=== PATIENT | male | born 1950 | race African-American/Black ===

== ENCOUNTER 2021-03-13 19:54 | Inpatient (IN) ==
[2021-03-13 20:57] LABS: Basophils # (auto) 0.01 K/uL (0-0.2); Basophils % (auto) 0.1 %; Eosinophils # (auto) 0.03 K/uL (0-0.5); Eosinophils % (auto) 0.4 %; Hematocrit (blood only) 42.2 % (42-52); Hemoglobin 14.4 g/dL (14.0-18.0); Immature Granulocytes # (auto) 0.02 K/uL (0.00-0.02); Immature Granulocytes % (auto) 0.3 %; Lymphocytes % (auto) 21.6 %; Mean Corpuscular Hemoglobin 32.4 pg (25-34); Mean Corpuscular Hgb Conc 34.1 g/dL (32-36); Mean Corpuscular Volume 94.8 fL (80-100); Mean Platelet Volume 10.7 fL (7.4-10.4); Monocytes # (auto) 0.48 K/uL (0.11-0.59); Monocytes % (auto) 6.9 %; Neutrophils # (auto) 4.91 K/uL (1.4-6.5); Neutrophils % (auto) 70.7 %; Platelet Count 269 K/uL (130-400); RDW Coefficient of Variation 11.7 % (11.5-14.5); RDW Standard Deviation 40.5 fL (36.4-46.3); Red Blood Count 4.45 M/uL (4.7-6.1); White Blood Count 6.95 K/uL (4.8-10.8)
[2021-03-13 21:08] LABS: INR 0.9 (0.9-1.1); Prothrombin Time 9.6 Seconds (9.0-12.0)
[2021-03-13 21:14] LABS: Albumin Level 3.4 gm/dl (3.4-5.0); Aspartate Aminotransferase 18 U/L (15-37); Blood Urea Nitrogen 13 mg/dl (7-18); Calcium 8.4 mg/dl (8.5-10.1); Carbon Dioxide 26 mmol/L (21-32); Chloride 98 mmol/L (98-107); Creatinine Clr Calc Pharmacy 60.4 ml/min; Est GFR (African American) 80.7 ml/min; Est GFR (Non-African American) 69.7 ml/min; Glucose 245 mg/dl (70-99); Potassium 3.9 mmol/L (3.5-5.1); Sodium 131 mmol/L (136-145)
[2021-03-13 21:25] LABS: Alanine Aminotransferase 26 U/L (12-78); Albumin Globulin Ratio 0.8 (0.9-2); Alkaline Phosphatase 99 U/L (45-117); Globulin 4.4 gm/dl (2.5-4.0); Total Protein 7.8 gm/dl (6.4-8.2); Troponin I < 0.015 ng/ml (0-0.045)
--- NOTE | 2021-03-13 21:34 | XRay Report ---
SINGLE VIEW CHEST CLINICAL HISTORY: Generalized weakness. FINDINGS: An AP, portable, upright chest radiograph is compared to chest x-ray and chest CT dated . The cardiomediastinal silhouette is unremarkable noting atherosclerotic calcification of the thoracic aorta. Emphysematous change and chronic interstitial thickening is similar to previous. No airspace consolidation, large pleural effusion, pneumothorax is seen. There is mild bibasilar atelect asis. The skeletal structures are osteopenic. The bony thorax is grossly intact. IMPRESSION: No acute cardiopulmonary abnormality. ACT 112: Negative or not required by law. Electronically signed by: Fernando Morgan M.D. 03/13/2021 9:33 PM
[2021-03-13 21:54] LABS: Lyme Ab IgG w/WB Rflx Negative (Negative); Lyme Ab IgM w/WB Rflx Negative (Negative)
--- NOTE | 2021-03-13 22:05 | CT Scan Report ---
CT SCAN OF THE ABDOMEN AND PELVIS WITHOUT IV CONTRAST CLINICAL HISTORY: Generalized abdominal pain. COMPARISON STUDY: No priors. TECHNIQUE: CT scan of the abdomen and pelvis is performed from the lung bases to the proximal femora. Images are reviewed in the axial, sagittal, and coronal planes. IV contrast was not administered for this examination. Note that the examination is suboptimal without oral and IV contrast. A dose lower ing technique was utilized adhering to the principles of ALARA. CT DOSE: 375.81 mGy.cm FINDINGS: Lung bases: The heart is normal in size and without pericardial effusion. The coronary arteries are d ensely calcified. Emphysematous change is noted at the lung bases. There is no airspace consolidation or pleural effusion. There is a small hiatal hernia. Liver: The unenhanced liver is normal in size, contour, and attenuation. There is no intrahepatic adriane iary ductal dilatation. Gallbladder: Unremarkable. Spleen: Normal in size and attenuation. Pancreas: There is mild infiltration and fluid identified around the distal pancreatic body and tail. No organized peripancreatic fluid collection is identified on this unenhanced examination. Adrenal glands: Unremarkable. Kidneys: The unenhanced kidneys demonstrate mild cortical atrophy and are without hydronephrosis. The re are no renal calculi identified. There is no evidence of contour deforming renal mass lesion. Abdominal vasculature: There is advanced atherosclerotic calcification mild ectasia of the abdominal aorta. Bowel: There is no bowel obstruction. The appendix is well-visualized and normal. Peritoneum: There is no intraperitoneal free air or abdominal ascites. There is a fat-containing umbi lical hernia. Lymphadenopathy: None. Pelvic viscera: The prostate gland is mildly enlarged and heterogeneous noting median lobe hypertroph y. The bladder is normal as visualized. There is evidence of bilateral inguinal herniorrhaphy. Skeletal structures: There is mild to moderate lumbosacral spondylosis. No lytic or blastic lesions a re seen. IMPRESSION: Findings suggest mild acute pancreatitis. Correlation with clinical findings and serum am ylase/lipase levels will be required. ACT 112: Negative or not required by law. Electronically signed by: Fernando Morgan M.D. 03/13/2021 10:03 PM
[2021-03-13] MEDS ORDERED: SODIUM CHLORIDE 0.9% 1000ML 1,000 ML IV ONE (22:19)
[2021-03-13 22:34] LABS: Amylase 124 U/L (25-115); Lipase 438 U/L (73-393)
[2021-03-13] MEDS ORDERED: hydrALAZINE HCL 20 MG/ML VIAL IV STA (22:48)
[2021-03-14] MEDS ORDERED: hydrALAZINE HCL 20 MG/ML VIAL IV PRN (01:04)
[2021-03-14] MEDS ORDERED: DICLOFENAC SOD 1% GEL 100 GM TUBE EXT PRN (01:04)
[2021-03-14] MEDS ORDERED: ACETAMINOPHEN 325 MG TAB PO PRN (01:04)
[2021-03-14] MEDS ORDERED: NITROGLYCERIN SL 0.4 MG/TAB TAB SL PRN (01:04)
[2021-03-14] MEDS ORDERED: ONDANSETRON INJ 2 MG/ML 2 ML VIAL IV PRN (01:04)
--- NOTE | 2021-03-14 02:12 | History and Physical Report ---
DATE OF ADMISSION: 03/13/2021. CHIEF COMPLAINT: Nausea, poor appetite. HISTORY OF PRESENT ILLNESS: This is a 70-year-old male with past medical history significant for type 2 diabetes, hyperlipidemia, hypertension, GERD, BPH, moderate depression, tobacco disorder, mild cognitive impairment, lives alone, presents with ongoing nausea, dry heaves, poor appetite for the last 3 weeks. He says he has lost some weight, that is the reason he came to the ER and found to have mild pancreatitis and also having elevated blood pressure. Denies any abdominal pain. Says he is having loose diarrhea, but he is not eating much, so nothing is coming out much. Normal bladder movements. Denies any burning micturitions, no swelling in the legs. No chest pain. No shortness of breath. Has smoker's cough. No headache, no blurred visions, no earache, no runny nose, no sore throat. Currently, resting comfortably and hemodynamically stable. ALLERGIES: TREE POLLEN. PAST MEDICAL HISTORY: As mentioned above. PAST SURGICAL HISTORY: Colonoscopy, repair of inguinal hernia, repair of ruptured rotator cuff. MEDICATIONS: The patient is on aspirin 81 mg p.o. daily, citalopram 20 mg p.o. daily, diclofenac sodium 1 g topical p.r.n., Flonase 2 sprays intranasal daily, Levemir 36 units b.i.d., lamotrigine 150 mg p.o. daily, lisinopril and hydrochlorothiazide 20/12.5 mg p.o. daily, omeprazole 20 mg p.o. daily, Cialis 20 mg p.r.n., Flomax 0.4 mg p.o. daily. FAMILY HISTORY: Significant for aunt has diabetes; father has diabetes, hypertension; mother has hypertension. SOCIAL HISTORY: Single, smokes 1 pack a day for the last many years. No alcohol use. No drug use. Cocaine in the past. REVIEW OF SYSTEMS: As per HPI. Rest of review of systems is negative. PHYSICAL EXAMINATION: GENERAL: The patient is of moderate build, not in acute distress. VITAL SIGNS: Temperature 36.7, pulse 72, respiratory rate 22, blood pressure 219/123, oxygen 99% on room air. HEENT: Pupils equal, round and reactive to light. Oral mucosa moist. NECK: No JVD, no neck masses. HEART: S1 and S2 heard. Regular rate and rhythm. No murmur, no gallop. RESPIRATORY SYSTEM: Normal AP diameter. No accessory muscle use. No wheezing, no crackles. ABDOMEN: Soft, bowel sounds present, nontender, no distention. CENTRAL NERVOUS SYSTEM: Cranial nerves II-XII grossly intact, nonfocal. EXTREMITIES: No edema, no erythema. LABORATORY DATA: WBC 6.9, hemoglobin 14.4, hematocrit 42.2, platelets 269. PT 9.6, INR 0.9. Sodium 131, potassium 3.9, chloride 98, bicarbonate 26, BUN 13, creatinine 1.08, serum glucose 245, calcium 8.4, total bilirubin 1, AST of 18, ALT 26, alkaline phosphatase 99. Troponin I less than 0.015. Amylase 124, lipase 438. TSH 1.7. Lyme screen negative. Anaplasmosis screen negative. COVID-19 PCR negative. IMAGING DATA: CT of abdomen and pelvis is suggestive of mild acute pancreatitis. Chest x-ray, no acute cardiopulmonary findings. EKG: Sinus rhythm with first-degree AV block at a rate of 80. ASSESSMENT AND PLAN: This is a 70-year-old male, who presents with ongoing nausea, dry heaves, and weight loss. 1. Nausea and dry heaves: He says he has poor appetite. No abdominal pain, but CAT scan is showing mild acute pancreatitis. No history of alcoholism. Currently n.p.o. except for liquids. Starting on IV Ringer lactate 200 mL per hour, IV antiemetics. Consult GI in the a.m. for further recommendations. 2. Hypertensive urgency: Blood pressure is elevated. After hydralazine, it is improved. Will place on IV hydralazine p.r.n. Continue home lisinopril and hydrochlorothiazide. Monitor the blood pressure. 3. Depression: Continue citalopram. 4. Gastroesophageal reflux disease: Will place on IV Pepcid. 5. Diabetes: The patient has poor appetite. We will cut back on Levemir to [address] and [address] on insulin sliding scale. Follow the blood sugars. Follow HbA1c level. Adjust the insulin regimen. 6. Benign prostatic hypertrophy: On Flomax. 7. Tobacco abuse: Needs counseling. 8. Deep venous thrombosis prophylaxis: Lovenox. DISPOSITION: Closely monitor in the [facility]. Level 1 full code. Expect to discharge home and follow up with family doctor. Addendum: Patient having heart block on tele strips.Asymptomatic. Ekg shows mobitz type 1 heart block. Lyme screen done in er negative. Will avoid Av blocking meds.follow troponin, echo. Cardiology consult in am. NPO. Job ID: [id number] AMOS
[2021-03-14] MEDS: LACTATED RINGER'S 1,000 ML IV SCH ×4 (02:17→17:47)
[2021-03-14] MEDS ORDERED: INSULIN HUMAN REGULAR PER UNIT 4 UNITS in SYRINGE 3.96 ML IV STA (02:26)
--- NOTE | 2021-03-14 02:59 | Emergency Department Note ---
History of Present Illness General Chief complaint: Nausea Stated complaint: NAUSEA Time Seen by Provider: 03/13/21 20:30 Source: patient Mode of arrival: ambulatory Limitations: no limitations History of Present Illness Maximum Pain Intensity: 7 This patient is a 70-year-old male who says he has not felt well for the last 2 to 3 weeks since it got humid. He says he has been losing weight his appetites been decreased. He denies any shortness of breath or cough. He feels achy in his thighs and legs. He had some nausea without any vomiting. He said diarrhea however he only small amounts he said no blood or melena. He has some stomachaches occasionally describes as aching. No tick bites. No fever or chills. He did have the Covid vaccine. No dysuria or hematuria. No abdominal distention. No change in medications. No pleurisy. Has been compliant with all of his medications. Nothing seems to make his symptoms better or worse. Home Medications Medication Instructions Recorded Confirmed Type aspirin 81 mg tablet,delayed 81 mg PO DAILY 03/13/21 03/13/21 History release citalopram 20 mg tablet 20 mg PO DAILY 03/13/21 03/13/21 History diclofenac sodium 1 % topical gel 1 g TOPICAL UD PRN 03/13/21 03/13/21 History fluticasone propionate 50 2 spray INTRANASAL DAILY 03/13/21 03/13/21 History mcg/actuation nasal spray,suspension insulin detemir U-100 100 unit/mL 36 unit SUBCUT BID 03/13/21 03/13/21 History (3 mL) subcutaneous pen (Levemir FlexTouch U-100 Insulin) lamotrigine 150 mg tablet 150 mg PO DAILY 03/13/21 03/13/21 History lisinopril 20 1 tab PO DAILY 03/13/21 03/13/21 History mg-hydrochlorothiazide 12.5 mg tablet omeprazole 20 mg capsule,delayed 20 mg PO DAILY 03/13/21 03/13/21 History release tadalafil 20 mg tablet (Cialis) 20 mg PO DAILY PRN 03/13/21 03/13/21 History tamsulosin 0.4 mg capsule 0.4 mg PO DAILY 03/13/21 03/13/21 History Allergies Allergy/AdvReac Type Severity Reaction Status Date / Time TREES, POLLEN Allergy Intermediate ITCHY Uncoded 03/13/21 23:13 EYES, SNEEZE Past Med/Surg History Social History Smoking Status: Current every day smoker Cigarettes Per Day: 1 pack; Second Hand Exposure: No; Do You Dip or Chew Tobacco: No; Tobacco Cessation Education Requested by Patient: No Hx Alcohol Use: Yes Alcohol type: beer Hx Substance Use: No Preferred Language: Italian Communication Ability: Effective Release Of Information Clerk Required: No Beliefs That Will Affect Care: None Current Living Situation: Alone Other Information That Helps Us Care for You: No Feels Safe at Home: Yes Safety Concerns: Feels Safe At This Time Assistive Devices: Glasses Immunizations: Past medical historydiabetes he is on insulin. His blood sugars been running okay. Hypertension. Social historysmokes 1 pack/day. Does not drink alcohol or use drugs. Review of Systems A total of 10 systems reviewed and were otherwise negative Physical Exam Vital Signs Vital Signs - 24 hr 03/13/21 19:58 03/13/21 20:30 03/13/21 20:40 Temperature 36.7 C Temperature Source Skin Pulse Rate 108 H 77 Pulse Rate from SpO2 Sensor 84 Pulse Rhythm Regular Pulse Strength Normal Respiratory Rate 20 22 Respiratory Effort / Characteristics Non-Labored Respiratory Depth Normal Normal Respiratory Pattern Regular Blood Pressure 206/129 H 209/125 H Blood Pressure Mean 154 153 Blood Pressure Position Sitting Pulse Oximetry 97 97 Oxygen Delivery Method Room Air Room Air Sepsis Recent Fever Within 48 Hours No Sepsis New/Unexplained Change in Mental Status N/A Sepsis Action Taken by Nursing No Action Required 03/13/21 20:45 03/13/21 21:00 03/13/21 21:15 Temperature Temperature Source Pulse Rate 79 83 91 H Pulse Rate from SpO2 Sensor 77 82 89 Pulse Rhythm Pulse Strength Respiratory Rate 20 25 H 19 Respiratory Effort / Characteristics Respiratory Depth Respiratory Pattern Blood Pressure 208/121 H 204/130 H 212/124 H Blood Pressure Mean 150 154 153 Blood Pressure Position Pulse Oximetry 100 98 99 Oxygen Delivery Method Sepsis Recent Fever Within 48 Hours Sepsis New/Unexplained Change in Mental Status Sepsis Action Taken by Nursing 03/13/21 21:31 03/13/21 21:53 03/13/21 22:00 Temperature Temperature Source Pulse Rate 67 77 Pulse Rate from SpO2 Sensor 70 88 83 Pulse Rhythm Pulse Strength Respiratory Rate 25 H 22 24 Respiratory Effort / Characteristics Respiratory Depth Respiratory Pattern Blood Pressure 230/130 H 212/132 H Blood Pressure Mean 163 158 Blood Pressure Position Pulse Oximetry 98 98 98 Oxygen Delivery Method Sepsis Recent Fever Within 48 Hours Sepsis New/Unexplained Change in Mental Status Sepsis Action Taken by Nursing 03/13/21 22:15 03/13/21 22:31 03/13/21 22:46 Temperature Temperature Source Pulse Rate 82 85 99 H Pulse Rate from SpO2 Sensor 82 85 Pulse Rhythm Pulse Strength Respiratory Rate 25 H 27 H 23 Respiratory Effort / Characteristics Respiratory Depth Respiratory Pattern Blood Pressure 220/124 H 230/171 H Blood Pressure Mean 156 190 Blood Pressure Position Pulse Oximetry 98 99 Oxygen Delivery Method Sepsis Recent Fever Within 48 Hours Sepsis New/Unexplained Change in Mental Status Sepsis Action Taken by Nursing 03/13/21 23:00 03/13/21 23:17 Temperature Temperature Source Pulse Rate 72 82 Pulse Rate from SpO2 Sensor 87 Pulse Rhythm Pulse Strength Respiratory Rate 22 18 Respiratory Effort / Characteristics Respiratory Depth Respiratory Pattern Blood Pressure 219/123 H 138/78 Blood Pressure Mean 155 98 Blood Pressure Position Pulse Oximetry 99 Oxygen Delivery Method Sepsis Recent Fever Within 48 Hours Sepsis New/Unexplained Change in Mental Status Sepsis Action Taken by Nursing General: Well developed well nourished middle-age male who in no acute distress, breathing comfortably on room air. Normal speech HEENT: Normal cephalic atraumatic. Pupils are equal round and reactive to light. Extraocular movements are intact. Oropharynx is pink with moist mucous membranes. No swelling of the mouth lips or tongue. Neck: Supple with a midline trachea. No meningeal signs or stiffness, no JVD or bruits. No Stridor. Chest: Clear to auscultation bilaterally. No wheezes or rhonchi. No increased work of breathing. Heart: Regular rate and rhythm without murmurs or gallops. Abdomen: Soft nontender, nondistended without rebound guarding or rigidity. Extremities: No cyanosis clubbing or edema. No calf tenderness or assymetry Spine/Back. Non tender to palpation. No CVA tenderness Skin: Good turgor without rashes. Neurologic exam: Cranial nerves two through 12 are intact. Motor and sensation are intact and symmetrical throughout. [id number] is intact. No pronator drift. Course Administered Medications Lactated Ringer's (Lr) 1,000 mls @ 200 mls/hr IV .Q5H JACK Stop: 04/13/21 01:03 Last Admin: 03/14/21 02:17 Dose: 200 mls/hr Documented by: [id number] Discontinued Medications Hydralazine HCl (Hydralazine Hcl 20 Mg/Ml Vial) 10 mg IV NOW STA Stop: 03/13/21 22:49 Last Admin: 03/13/21 23:07 Dose: 10 mg Documented by: [id number] Sodium Chloride (Nss 1000ml) 1,000 mls @ 999 mls/hr IV .Q1H1M ONE Stop: 03/13/21 23:19 Last Infusion: 03/13/21 23:31 Dose: 999 mls/hr Documented by: [id number] Admin: 03/13/21 22:21 Dose: 999 mls/hr Documented by: [id number] Medical Decision Making Differential Diagnosis Dehydration, intra-abdominal process, electrolyte or metabolic abnormality, cardiac disease, arrhythmia, diabetic complication, liver disease, pancreatitis, Covid Medical Records Attestation: I reviewed the patient's medical records. Home Medications Current Medication List: was personally reviewed by me Laboratory Data Result diagrams: 03/13/21 20:33 03/13/21 20:33 Lab Results 03/13/21 03/13/21 03/13/21 Range/Units 20:33 20:33 20:33 WBC 6.95 (4.8-10.8) K/uL RBC 4.45 L (4.7-6.1) M/uL Hgb 14.4 (14.0-18.0) g/dL Hct 42.2 (42-52) % MCV 94.8 (80-100) fL MCH 32.4 (25-34) pg MCHC 34.1 (32-36) g/dL RDW Std Deviation 40.5 (36.4-46.3) fL RDW Coeff of Solange 11.7 (11.5-14.5) % Plt Count 269 (130-400) K/uL MPV 10.7 H (7.4-10.4) fL Immature Gran % (Auto) 0.3 % Neut % (Auto) 70.7 % Lymph % (Auto) 21.6 % [place] % (Auto) 6.9 % Eos % (Auto) 0.4 % Baso % (Auto) 0.1 % Neut # (Auto) 4.91 (1.4-6.5) K/uL Lymph # (Auto) 1.50 (1.2-3.4) K/uL [place] # (Auto) 0.48 (0.11-0.59) K/uL Eos # (Auto) 0.03 (0-0.5) K/uL Baso # (Auto) 0.01 (0-0.2) K/uL Immature Gran # (Auto) 0.02 (0.00-0.02) K/uL PT 9.6 (9.0-12.0) Seconds INR 0.9 (0.9-1.1) Sodium 131 L (136-145) mmol/L Potassium 3.9 (3.5-5.1) mmol/L Chloride 98 (98-107) mmol/L Carbon Dioxide 26 (21-32) mmol/L Anion Gap 7.0 (3-11) BUN 13 (7-18) mg/dl Creatinine 1.08 (0.6-1.4) mg/dl Est Cr Clr Drug Dosing 60.4 ml/min Est GFR ( Amer) 80.7 ml/min Est GFR (Non-Af Amer) 69.7 ml/min BUN/Creatinine Ratio 12.0 (10-20) Glucose 245 H (70-99) mg/dl Calcium 8.4 L (8.5-10.1) mg/dl Total Bilirubin 1.0 (0.2-1) mg/dl AST 18 (15-37) U/L ALT 26 (12-78) U/L Alkaline Phosphatase 99 (45-117) U/L Troponin I < 0.015 (0-0.045) ng/ml Total Protein 7.8 (6.4-8.2) gm/dl Albumin 3.4 (3.4-5.0) gm/dl Globulin 4.4 H (2.5-4.0) gm/dl Albumin/Globulin Ratio 0.8 L (0.9-2) Amylase 124 H (25-115) U/L Lipase 438 H (73-393) U/L TSH 1.730 (0.300-4.500) uIu/ml Anaplasma Smear See Comment Lyme Disease IgG Ab (Negative) Lyme Disease IgM Ab (Negative) COVID-19 Eval Order SARS-CoV-2 (PCR) (Negative) 03/13/21 03/13/21 03/13/21 Range/Units 20:33 22:00 22:00 WBC (4.8-10.8) K/uL RBC (4.7-6.1) M/uL Hgb (14.0-18.0) g/dL Hct (42-52) % MCV (80-100) fL MCH (25-34) pg MCHC (32-36) g/dL RDW Std Deviation (36.4-46.3) fL RDW Coeff of Solange (11.5-14.5) % Plt Count (130-400) K/uL MPV (7.4-10.4) fL Immature Gran % (Auto) % Neut % (Auto) % Lymph % (Auto) % [place] % (Auto) % Eos % (Auto) % Baso % (Auto) % Neut # (Auto) (1.4-6.5) K/uL Lymph # (Auto) (1.2-3.4) K/uL [place] # (Auto) (0.11-0.59) K/uL Eos # (Auto) (0-0.5) K/uL Baso # (Auto) (0-0.2) K/uL Immature Gran # (Auto) (0.00-0.02) K/uL PT (9.0-12.0) Seconds INR (0.9-1.1) Sodium (136-145) mmol/L Potassium (3.5-5.1) mmol/L Chloride (98-107) mmol/L Carbon Dioxide (21-32) mmol/L Anion Gap (3-11) BUN (7-18) mg/dl Creatinine (0.6-1.4) mg/dl Est Cr Clr Drug Dosing ml/min Est GFR ( Amer) ml/min Est GFR (Non-Af Amer) ml/min BUN/Creatinine Ratio (10-20) Glucose (70-99) mg/dl Calcium (8.5-10.1) mg/dl Total Bilirubin (0.2-1) mg/dl AST (15-37) U/L ALT (12-78) U/L Alkaline Phosphatase (45-117) U/L Troponin I (0-0.045) ng/ml Total Protein (6.4-8.2) gm/dl Albumin (3.4-5.0) gm/dl Globulin (2.5-4.0) gm/dl Albumin/Globulin Ratio (0.9-2) Amylase (25-115) U/L Lipase (73-393) U/L TSH (0.300-4.500) uIu/ml Anaplasma Smear Lyme Disease IgG Ab Negative (Negative) Lyme Disease IgM Ab Negative (Negative) COVID-19 Eval Order Covid19 at [facility] SARS-CoV-2 (PCR) NEGATIVE (Negative) Imaging Data My Impression: Chest x-rayno acute infiltrate, failure, pneumothorax seen Radiologist's Impression: Chest X-Ray 03/13/21 20:39 SINGLE VIEW CHEST CLINICAL HISTORY: Generalized weakness. FINDINGS: An AP, portable, upright chest radiograph is compared to chest x-ray and chest CT dated 06/15/2013. The cardiomediastinal silhouette is unremarkable noting atherosclerotic calcification of the thoracic aorta. Emphysematous change and chronic interstitial thickening is similar to previous. No airspace consolidation, large pleural effusion, pneumothorax is seen. There is mild bibasilar atelectasis. The skeletal structures are osteopenic. The bony thorax is grossly intact. IMPRESSION: No acute cardiopulmonary abnormality. ACT 112: Negative or not required by law. Electronically signed by: Fernando Morgan M.D. 03/13/2021 9:33 PM Abdomen/Pelvis CT 03/13/21 20:48 CT SCAN OF THE ABDOMEN AND PELVIS WITHOUT IV CONTRAST CLINICAL HISTORY: Generalized abdominal pain. COMPARISON STUDY: No priors. TECHNIQUE: CT scan of the abdomen and pelvis is performed from the lung bases to the proximal femora. Images are reviewed in the axial, sagittal, and coronal planes. IV contrast was not administered for this examination. Note that the examination is suboptimal without oral and IV contrast. A dose lowering technique was utilized adhering to the principles of ALARA. CT DOSE: 375.81 mGy.cm FINDINGS: Lung bases: The heart is normal in size and without pericardial effusion. The coronary arteries are densely calcified. Emphysematous change is noted at the lung bases. There is no airspace consolidation or pleural effusion. There is a small hiatal hernia. Liver: The unenhanced liver is normal in size, contour, and attenuation. There is no intrahepatic biliary ductal dilatation. Gallbladder: Unremarkable. Spleen: Normal in size and attenuation. Pancreas: There is mild infiltration and fluid identified around the distal pancreatic body and tail. No organized peripancreatic fluid collection is identified on this unenhanced examination. Adrenal glands: Unremarkable. Kidneys: The unenhanced kidneys demonstrate mild cortical atrophy and are without hydronephrosis. There are no renal calculi identified. There is no evidence of contour deforming renal mass lesion. Abdominal vasculature: There is advanced atherosclerotic calcification mild ectasia of the abdominal aorta. Bowel: There is no bowel obstruction. The appendix is well-visualized and normal. Peritoneum: There is no intraperitoneal free air or abdominal ascites. There is a fat-containing umbilical hernia. Lymphadenopathy: None. Pelvic viscera: The prostate gland is mildly enlarged and heterogeneous noting median lobe hypertrophy. The bladder is normal as visualized. There is evidence of bilateral inguinal herniorrhaphy. Skeletal structures: There is mild to moderate lumbosacral spondylosis. No lytic or blastic lesions are seen. IMPRESSION: Findings suggest mild acute pancreatitis. Correlation with clinical findings and serum amylase/lipase levels will be required. ACT 112: Negative or not required by law. Electronically signed by: Fernando Morgan M.D. 03/13/2021 10:03 PM ECG Data Attestation: I personally reviewed and interpreted this ECG as follows: Indication: + weakness Rate (beats per minute): 72 Rhythm: + normal sinus ECG Intervals/blocks: + First degree AV block and + Mobitz Type II ECG [place]: + Left axis deviation ECG ST segments: + Normal ST segments ECG Findings: no PVCs Comparison ECG Date: from (06/15/2013) Change: the following changes noted (Nonconducted P waves are now seen consistent with a Mobitz type II picture) Additional Comments: EKG #2: Normal sinus rhythm with a rate of 80 first-degree AV block. No ischemic changes. Mobitz type II is not seen on this EKG when compared EKG #1 MDM Narrative This patient comes in as described above. He has not felt well for couple weeks. He looks well his abdomen is benign he has a normal neurologic exam. Blood pressure was significantly elevated persistently over 200. IV access was established and he was hydrated with normal saline. EKG shows no ischemic changes he does have dropped P waves on the monitor when we look at this as well as on his EKG at times. This appears to be Mobitz type II, as there is no lengthening of the PA interval but he just drops. He is asymptomatic with this. Given the fact that he has AV ashlee disease likely I do not want to give him anything that would be a ashlee aranza. I gave him hydralazine 10 mg IV for his blood pressure the seem to help significantly and he tolerated this well. His troponins not elevated he has no significant elcetrolight or metabolic abnormalities. CAT scan of the abdomen shows no acute findings with exception of a possible mild pancreatitis. His lipase and amylase are minimally elevated and I do not think he likely has a significant pancreatitis. I did discuss the case with Dr. Pate, who is a instructor of education on for [employer], and he agrees with the plan and the patient was admitted to Dr. Reza who who saw him in the ER. Continuous cardiac monitoring: An order was placed in the EMR for continuous monitoring. Upon my interpretation the patient was noted to be in normal sinus rhythm with a rate of 90 with frequent irregularities consistent with Mobitz type II Impression & Plan AV block, Mobitz II, Hypertension, Weakness, Diabetes Discharge Plan Visit Data Chief Complaint: Nausea Stated Complaint: NAUSEA ED Provider: Daniel Cedillo Discharge Problem: AV block, Mobitz II, Hypertension, Weakness, Diabetes Patient Disposition: Admitted As Inpatient Discharge Instructions Interventions: ED Discharge Assessment Last Done: 03/14/21 00:09
[2021-03-14] MEDS: FAMOTIDINE 20 MG in SYRINGE 3 ML IV SCH ×3 (03:07→20:49)
[2021-03-14] MEDS: INSULIN ASPART 100 UNITS/ML 3 ML PEN SC SCH ×5 (03:14→20:50)
[2021-03-14 04:04] LABS: Appearance Urine Clear (Clear); Bacteria Urine Automated Negative (Negative); Bilirubin Urine Negative (Negative); Blood Urine Negative (Negative); Cast Urine Automated 0 /lpf (0-5); Color Urine Yellow; Epithelial Cell Urine Auto 0-5 /lpf (0-5); Glucose Urine UA 3+ (Negative); Ketones Urine Trace (Negative); Leukocyte Esterase Urine Negative (Negative); Nitrite Urine Negative (Negative); Protein Urine Trace (Negative); RBC Urine Automated 0-4 /hpf (0-4); Specific Gravity Urine 1.022 (1.000-1.030); Urobilinogen Urine Negative (Negative); WBC Urine Automated 0 /hpf (0-5)
[2021-03-14] MEDS: ENOXAPARIN INJ 40 MG/0.4 ML SYR SQ SCH (05:46)
[2021-03-14 05:52] LABS: Basophils # (auto) 0.01 K/uL (0-0.2); Basophils % (auto) 0.1 %; Eosinophils # (auto) 0.06 K/uL (0-0.5); Eosinophils % (auto) 0.9 %; Hematocrit (blood only) 39.5 % (42-52); Hemoglobin 13.6 g/dL (14.0-18.0); Immature Granulocytes # (auto) 0.02 K/uL (0.00-0.02); Immature Granulocytes % (auto) 0.3 %; Lymphocytes # (auto) 1.48 K/uL (1.2-3.4); Lymphocytes % (auto) 22.2 %; Mean Corpuscular Hemoglobin 31.9 pg (25-34); Mean Corpuscular Hgb Conc 34.4 g/dL (32-36); Mean Corpuscular Volume 92.5 fL (80-100); Mean Platelet Volume 10.3 fL (7.4-10.4); Monocytes # (auto) 0.63 K/uL (0.11-0.59); Monocytes % (auto) 9.4 %; Neutrophils # (auto) 4.47 K/uL (1.4-6.5); Neutrophils % (auto) 67.1 %; Platelet Count 228 K/uL (130-400); RDW Coefficient of Variation 11.8 % (11.5-14.5); RDW Standard Deviation 39.8 fL (36.4-46.3); Red Blood Count 4.27 M/uL (4.7-6.1); White Blood Count 6.67 K/uL (4.8-10.8)
[2021-03-14 06:12] LABS: BUN Creatinine Ratio 15.2 (10-20); Calcium 8.6 mg/dl (8.5-10.1); Creatinine Clr Calc Pharmacy 78.5 ml/min; Est GFR (African American) 104.1 ml/min; Est GFR (Non-African American) 89.8 ml/min; Potassium 3.6 mmol/L (3.5-5.1)
[2021-03-14 06:17] LABS: Phosphorus 2.7 mg/dl (2.5-4.9); Troponin I 0.019 ng/ml (0-0.045)
[2021-03-14 07:47] LABS: Estimated Average Glucose 243 mg/dl; Hemoglobin A1C 10.1 % (4.5-5.6)
[2021-03-14] MEDS: CITALOPRAM 20 MG TAB PO SCH (08:10)
[2021-03-14] MEDS: lamoTRIgine 100 MG TAB PO SCH (08:10)
[2021-03-14] MEDS: LISINOPRIL/HCTZ 20/12.5MG 1 TAB TAB PO SCH (08:11)
[2021-03-14] MEDS: TAMSULOSIN HCL 0.4 MG CAP PO SCH (08:11)
[2021-03-14] MEDS: PANTOprazole 40 MG TAB PO SCH (08:12)
[2021-03-14] MEDS: ASPIRIN 81 MG ECTAB PO SCH (08:12)
[2021-03-14] MEDS: FLUTICASONE PROPIONATE NA SPR 16 GM BTL SCH (08:14)
--- NOTE | 2021-03-14 08:18 | Cardiology Consultation ---
Date of Consultation March 14, 2021 Assessment & Plan (1) Mobitz I: I reviewed the patient's EKGs. He has a baseline first-degree AV block. He presented with severe abdominal pain from pancreatitis and I believe he was having Mobitz type I heart block which is most likely due to high vagal tone. I will review the echocardiogram which was completed this morning and if it is unremarkable I do not believe any additional cardiac work-up is indicated at this time. (2) Pancreatitis: History of Present Illness Attending Physician: Bharat Lindsey MD History of Present Illness This is a 70-year-old male patient with a past medical history as outlined below. He has no significant cardiac history. He was admitted with severe abdominal discomfort and found to have pancreatitis. He has been evaluated by the GI service. During his initial admission and while he was having a great deal of pain, on his EKG he has evidence of a baseline first-degree AV block but was also having Mobitz type I or wenkebach. This is most likely due to high vagal tone from his pain and nausea. He had an echocardiogram completed this morning which I will review. Cardiac markers have been negative. Past medical history: Type 2 diabetes mellitus with hemoglobin A1c goal of less than 7.0% (HCC) Moderate episode of recurrent major depressive disorder (HCC) Current use of insulin (HCC) Impotence of organic origin DYSLIPIDEMIA, GOAL LDL BELOW 100 BPH with obstruction/lower urinary tract symptoms Tobacco use disorder HTN, goal below 140/90 GERD (gastroesophageal reflux disease) MCI (mild cognitive impairmen Allergies Allergy/AdvReac Type Severity Reaction Status Date / Time TREES, POLLEN Allergy Intermediate ITCHY Uncoded 03/13/21 23:13 EYES, SNEEZE Home Medications Medication Instructions Recorded Confirmed Type aspirin 81 mg tablet,delayed 81 mg PO DAILY 03/13/21 03/13/21 History release citalopram 20 mg tablet 20 mg PO DAILY 03/13/21 03/13/21 History diclofenac sodium 1 % topical gel 1 g TOPICAL UD PRN 03/13/21 03/13/21 History fluticasone propionate 50 2 spray INTRANASAL DAILY 03/13/21 03/13/21 History mcg/actuation nasal spray,suspension insulin detemir U-100 100 unit/mL 36 unit SUBCUT BID 03/13/21 03/13/21 History (3 mL) subcutaneous pen (Levemir FlexTouch U-100 Insulin) lamotrigine 150 mg tablet 150 mg PO DAILY 03/13/21 03/13/21 History lisinopril 20 1 tab PO DAILY 03/13/21 03/13/21 History mg-hydrochlorothiazide 12.5 mg tablet omeprazole 20 mg capsule,delayed 20 mg PO DAILY 03/13/21 03/13/21 History release tadalafil 20 mg tablet (Cialis) 20 mg PO DAILY PRN 03/13/21 03/13/21 History tamsulosin 0.4 mg capsule 0.4 mg PO DAILY 03/13/21 03/13/21 History Patient History Social History Smoking Status: Current every day smoker Cigarettes Per Day: 1 pack; Second Hand Exposure: No; Do You Dip or Chew Tobacco: No; Tobacco Cessation Education Requested by Patient: No Hx Alcohol Use: Yes Alcohol type: beer Hx Substance Use: No Preferred Language: Venezuelan Communication Ability: Effective Relief Operator Required: No Beliefs That Will Affect Care: None Current Living Situation: Alone Other Information That Helps Us Care for You: No Feels Safe at Home: Yes Safety Concerns: Feels Safe At This Time Assistive Devices: Glasses Review of Systems Review of Systems: Review of Systems: See HPI for pertinent positives. All other 10 point review of systems are negative. Physical Exam Physical Exam: General: no acute distress and stated age Head: normocephalic, no masses, lesions, tenderness or abnormalities Eyes: conjunctiva are pink and non-injected, sclera clear Neck: supple, no adenopathy, no bruits, normal jugular venous pulse, no hepatojugular reflux Chest: normal shape and normal respiratory effort Lungs: clear to auscultation and percussion Cardiac Exam: - regular rate & rhythm, no murmurs gallops or rubs - normal S1, normal S2 Pulses: 2(+) throughout Abdomen: abdomen soft, non-tender, no abnormal masses and no hepatosplenomegaly Musculoskeletal: no gait disturbance, no joint inflammation, no deforming arthritis Extremities: no edema and no cyanosis Neuro: grossly normal exam Results & Data ([facility]) Vital Signs (Past 12 Hours) Vital Signs Temp Pulse Pulse Resp BP BP Pulse Ox 03/14/21 07:41 74 03/14/21 07:39 37.1 C 86 16 160/88 H 97 03/14/21 04:25 37.2 C 86 20 174/91 H 98 03/14/21 01:46 37.4 C 90 18 169/92 H 98 03/14/21 00:59 88 03/14/21 00:52 107 H 03/13/21 23:50 107 H 26 H 03/13/21 23:47 110 H 33 H 03/13/21 23:31 67 21 190/89 H 99 03/13/21 23:17 82 18 138/78 99 03/13/21 23:00 72 22 219/123 H 03/13/21 22:46 99 H 23 03/13/21 22:31 85 27 H 230/171 H 99 03/13/21 22:15 82 25 H 220/124 H 98 03/13/21 22:00 77 24 212/132 H 98 03/13/21 21:53 22 98 03/13/21 21:31 67 25 H 230/130 H 98 03/13/21 21:15 91 H 19 212/124 H 99 03/13/21 21:00 83 25 H 204/130 H 98 03/13/21 20:45 79 20 208/121 H 100 03/13/21 20:30 77 22 209/125 H 97 Laboratory Results Laboratory Results - last 24 hr 03/13/21 03/13/21 03/13/21 20:33 20:33 20:33 WBC 6.95 RBC 4.45 L Hgb 14.4 Hct 42.2 MCV 94.8 MCH 32.4 MCHC 34.1 RDW Std Deviation 40.5 RDW Coeff of Sol[place] 11.7 Plt Count 269 MPV 10.7 H Immature Gran % (Auto) 0.3 Neut % (Auto) 70.7 Lymph % (Auto) 21.6 [place] % (Auto) 6.9 Eos % (Auto) 0.4 Baso % (Auto) 0.1 Neut # (Auto) 4.91 Lymph # (Auto) 1.50 [place] # (Auto) 0.48 Eos # (Auto) 0.03 Baso # (Auto) 0.01 Immature Gran # (Auto) 0.02 PT 9.6 INR 0.9 Sodium 131 L Potassium 3.9 Chloride 98 Carbon Dioxide 26 Anion Gap 7.0 BUN 13 Creatinine 1.08 Est Cr Clr Drug Dosing 60.4 Est GFR ( Amer) 80.7 Est GFR (Non-Af Amer) 69.7 BUN/Creatinine Ratio 12.0 Glucose 245 H POC Glucose Estimat Average Glucose Hemoglobin A1c Calcium 8.4 L Phosphorus Magnesium Total Bilirubin 1.0 AST 18 ALT 26 Alkaline Phosphatase 99 Troponin I < 0.015 Total Protein 7.8 Albumin 3.4 Globulin 4.4 H Albumin/Globulin Ratio 0.8 L Triglycerides Cholesterol LDL Cholesterol, Calc VLDL Cholesterol, Calc HDL Cholesterol Cholesterol/HDL Ratio Amylase 124 H Lipase 438 H TSH 1.730 Urine Color Urine Appearance Urine pH Ur Specific [place] Urine Protein Urine Glucose (UA) Urine Ketones Urine Blood Urine Nitrite Urine Bilirubin Urine Urobilinogen Ur Leukocyte Esterase Urine WBC (Auto) Urine RBC (Auto) U Hyaline Cast (Auto) U Epithel Cells (Auto) Urine Bacteria (Auto) Anaplasma Smear See Comment A. phagocytophilum DNA Lyme Disease IgG Ab Lyme Disease IgM Ab COVID-19 Eval Order SARS-CoV-2 (PCR) 03/13/21 03/13/21 03/13/21 20:33 20:33 22:00 WBC RBC Hgb Hct MCV MCH MCHC RDW Std Deviation RDW Coeff of [place] Plt Count MPV Immature Gran % (Auto) Neut % (Auto) Lymph % (Auto) [place] % (Auto) Eos % (Auto) Baso % (Auto) Neut # (Auto) Lymph # (Auto) [place] # (Auto) Eos # (Auto) Baso # (Auto) Immature Gran # (Auto) PT INR Sodium Potassium Chloride Carbon Dioxide Anion Gap BUN Creatinine Est Cr Clr Drug Dosing Est GFR ( Amer) Est GFR (Non-Af Amer) BUN/Creatinine Ratio Glucose POC Glucose Estimat Average Glucose Hemoglobin A1c Calcium Phosphorus Magnesium Total Bilirubin AST ALT Alkaline Phosphatase Troponin I Total Protein Albumin Globulin Albumin/Globulin Ratio Triglycerides Cholesterol LDL Cholesterol, Calc VLDL Cholesterol, Calc HDL Cholesterol Cholesterol/HDL Ratio Amylase Lipase TSH Urine Color Urine Appearance Urine pH Ur Specific [place] Urine Protein Urine Glucose (UA) Urine Ketones Urine Blood Urine Nitrite Urine Bilirubin Urine Urobilinogen Ur Leukocyte Esterase Urine WBC (Auto) Urine RBC (Auto) U Hyaline Cast (Auto) U Epithel Cells (Auto) Urine Bacteria (Auto) Anaplasma Smear A. phagocytophilum DNA Pending Lyme Disease IgG Ab Negative Lyme Disease IgM Ab Negative COVID-19 Eval Order Covid19 at [facility] SARS-CoV-2 (PCR) 03/13/21 03/14/21 03/14/21 22:00 02:21 03:40 WBC RBC Hgb Hct MCV MCH MCHC RDW Std Deviation RDW Coeff of Solange Plt Count MPV Immature Gran % (Auto) Neut % (Auto) Lymph % (Auto) [place] % (Auto) Eos % (Auto) Baso % (Auto) Neut # (Auto) Lymph # (Auto) [place] # (Auto) Eos # (Auto) Baso # (Auto) Immature Gran # (Auto) PT INR Sodium Potassium Chloride Carbon Dioxide Anion Gap BUN Creatinine Est Cr Clr Drug Dosing Est GFR ( Amer) Est GFR (Non-Af Amer) BUN/Creatinine Ratio Glucose POC Glucose 284 H Estimat Average Glucose Hemoglobin A1c Calcium Phosphorus Magnesium Total Bilirubin AST ALT Alkaline Phosphatase Troponin I Total Protein Albumin Globulin Albumin/Globulin Ratio Triglycerides Cholesterol LDL Cholesterol, Calc VLDL Cholesterol, Calc HDL Cholesterol Cholesterol/HDL Ratio Amylase Lipase TSH Urine Color Yellow Urine Appearance Clear Urine pH 7.0 Ur Specific [place] 1.022 Urine Protein Trace H Urine Glucose (UA) 3+ H Urine Ketones Trace H Urine Blood Negative Urine Nitrite Negative Urine Bilirubin Negative Urine Urobilinogen Negative Ur Leukocyte Esterase Negative Urine WBC (Auto) 0 Urine RBC (Auto) 0-4 U Hyaline Cast (Auto) 0 U Epithel Cells (Auto) 0-5 Urine Bacteria (Auto) Negative Anaplasma Smear A. phagocytophilum DNA Lyme Disease IgG Ab Lyme Disease IgM Ab COVID-19 Eval Order SARS-CoV-2 (PCR) NEGATIVE 03/14/21 03/14/21 03/14/21 05:27 05:27 05:27 WBC 6.67 RBC 4.27 L Hgb 13.6 L Hct 39.5 L MCV 92.5 MCH 31.9 MCHC 34.4 RDW Std Deviation 39.8 RDW Coeff of [place] 11.8 Plt Count 228 MPV 10.3 Immature Gran % (Auto) 0.3 Neut % (Auto) 67.1 Lymph % (Auto) 22.2 [place] % (Auto) 9.4 Eos % (Auto) 0.9 Baso % (Auto) 0.1 Neut # (Auto) 4.47 Lymph # (Auto) 1.48 [place] # (Auto) 0.63 H Eos # (Auto) 0.06 Baso # (Auto) 0.01 Immature Gran # (Auto) 0.02 PT INR Sodium 137 Potassium 3.6 Chloride 106 Carbon Dioxide 28 Anion Gap 3.0 BUN 13 Creatinine 0.83 Est Cr Clr Drug Dosing 78.5 Est GFR ( Amer) 104.1 Est GFR (Non-Af Amer) 89.8 BUN/Creatinine Ratio 15.2 Glucose 86 POC Glucose Estimat Average Glucose 243 Hemoglobin A1c 10.1 H Calcium 8.6 Phosphorus 2.7 Magnesium 2.0 Total Bilirubin AST ALT Alkaline Phosphatase Troponin I 0.019 Total Protein Albumin Globulin Albumin/Globulin Ratio Triglycerides 153 H Cholesterol 170 LDL Cholesterol, Calc 92 VLDL Cholesterol, Calc 31 HDL Cholesterol 47 Cholesterol/HDL Ratio 4 Amylase Lipase 373 TSH Urine Color Urine Appearance Urine pH Ur Specific [place] Urine Protein Urine Glucose (UA) Urine Ketones Urine Blood Urine Nitrite Urine Bilirubin Urine Urobilinogen Ur Leukocyte Esterase Urine WBC (Auto) Urine RBC (Auto) U Hyaline Cast (Auto) U Epithel Cells (Auto) Urine Bacteria (Auto) Anaplasma Smear A. phagocytophilum DNA Lyme Disease IgG Ab Lyme Disease IgM Ab COVID-19 Eval Order SARS-CoV-2 (PCR) 03/14/21 03/14/21 05:44 07:30 WBC RBC Hgb Hct MCV MCH MCHC RDW Std Deviation RDW Coeff of Solange Plt Count MPV Immature Gran % (Auto) Neut % (Auto) Lymph % (Auto) [place] % (Auto) Eos % (Auto) Baso % (Auto) Neut # (Auto) Lymph # (Auto) [place] # (Auto) Eos # (Auto) Baso # (Auto) Immature Gran # (Auto) PT INR Sodium Potassium Chloride Carbon Dioxide Anion Gap BUN Creatinine Est Cr Clr Drug Dosing Est GFR ( Amer) Est GFR (Non-Af Amer) BUN/Creatinine Ratio Glucose POC Glucose 97 126 H Estimat Average Glucose Hemoglobin A1c Calcium Phosphorus Magnesium Total Bilirubin AST ALT Alkaline Phosphatase Troponin I Total Protein Albumin Globulin Albumin/Globulin Ratio Triglycerides Cholesterol LDL Cholesterol, Calc VLDL Cholesterol, Calc HDL Cholesterol Cholesterol/HDL Ratio Amylase Lipase TSH Urine Color Urine Appearance Urine pH Ur Specific [place] Urine Protein Urine Glucose (UA) Urine Ketones Urine Blood Urine Nitrite Urine Bilirubin Urine Urobilinogen Ur Leukocyte Esterase Urine WBC (Auto) Urine RBC (Auto) U Hyaline Cast (Auto) U Epithel Cells (Auto) Urine Bacteria (Auto) Anaplasma Smear A. phagocytophilum DNA Lyme Disease IgG Ab Lyme Disease IgM Ab COVID-19 Eval Order SARS-CoV-2 (PCR) Medications Administered Current Inpatient Medications Acetaminophen (Acetaminophen 325 Mg Tab) 650 mg PO Q4H PRN PRN Reason: Pain or Fever Stop: 04/13/21 01:03 Aspirin (Aspirin 81 Mg Ectab) 81 mg PO DAILY JACK Stop: 04/13/21 08:59 Last Admin: 03/14/21 08:12 Dose: 81 mg Documented by: Citalopram Hydrobromide (Citalopram 20 Mg Tab) 20 mg PO DAILY JACK Stop: 04/13/21 08:59 Last Admin: 03/14/21 08:10 Dose: 20 mg Documented by: Diclofenac Sodium (Diclofenac Sod 1% Gel 100 Gm Tube) 1 gm EXT DAILY PRN PRN Reason: Pain Stop: 04/13/21 01:03 Enoxaparin Sodium (Enoxaparin Inj 40 Mg/0.4 Ml Syr) 40 mg SQ Q24H JACK Stop: 04/13/21 05:59 Last Admin: 03/14/21 05:46 Dose: 40 mg Documented by: Fluticasone Propionate (Fluticasone Propionate Na Spr 16 Gm Btl) 2 sprays NA DAILY JACK Stop: 04/13/21 08:59 Last Admin: 03/14/21 08:14 Dose: Not Given Documented by: Lisinopril/HCTZ (Lisinopril/Hctz 20/12.5mg 1 Tab Tab) 1 tab PO DAILY JACK Stop: 04/13/21 08:59 Last Admin: 03/14/21 08:11 Dose: 1 tab Documented by: Hydralazine HCl (Hydralazine Hcl 20 Mg/Ml Vial) 10 mg IV Q6H PRN PRN Reason: Hypertension Stop: 04/13/21 01:03 Lactated Ringer's (Lr) 1,000 mls @ 200 mls/hr IV .Q5H JACK Stop: 04/13/21 01:03 Last Admin: 03/14/21 07:55 Dose: 200 mls/hr Documented by: Famotidine 20 mg/ Syringe 5 mls @ 2.5 mls/min IV BID JACK Stop: 04/13/21 01:03 Last Admin: 03/14/21 08:16 Dose: 2.5 mls/min Documented by: Insulin Aspart (Insulin Aspart 100 Units/Ml 3 Ml Pen) 0 units SC Q6 JACK Stop: 04/13/21 02:29 Last Admin: 03/14/21 05:55 Dose: Not Given Documented by: Insulin Detemir (Insulin Detemir Flexpen/Flex Touch 100 Units/Ml 3ml) 10 units SC BID [facility] Stop: 04/13/21 20:59 Lamotrigine (Lamotrigine 100 Mg Tab) 150 mg PO DAILY JACK Stop: 04/13/21 08:59 Last Admin: 03/14/21 08:10 Dose: 150 mg Documented by: Nitroglycerin (Nitroglycerin Sl 0.4 Mg/Tab Tab) 0.4 mg SL UD PRN PRN Reason: Chest Pain Stop: 04/13/21 01:03 Ondansetron HCl (Ondansetron Inj 2 Mg/Ml 2 Ml Vial) 4 mg IV Q6H PRN PRN Reason: Nausea Stop: 04/13/21 01:03 Pantoprazole Sodium (Pantoprazole 40 Mg Tab) 40 mg PO DAILY JACK Stop: 04/13/21 08:59 Last Admin: 03/14/21 08:12 Dose: 40 mg Documented by: Tamsulosin HCl (Tamsulosin Hcl 0.4 Mg Cap) 0.4 mg PO DAILY [facility] Stop: 04/13/21 08:59 Last Admin: 03/14/21 08:11 Dose: 0.4 mg Documented by:
[2021-03-14] MEDS ORDERED: INSULIN DETEMIR FLEXPEN/FLEX TOUCH 100 UNITS/ML 3ML SC SCH ×3 (09:00→21:00)
--- NOTE | 2021-03-14 09:25 | Gastrointestinal Consultation ---
Date of Consultation March 14, 2021 Assessment & Plan (1) Pancreatitis: Pt is a 70 yo male currently admitted for pancreatitis. Risk factors: DM II, tobacco use, mild ETOh use, ? microstones in gallbladder not seen in [place]. TG 153, No known family hx of autoimmune pancreatitis or liver diseases - IVF hydration w LR @ 200ml/hr - Trial CL diet; if tolerating PO intake may advance slowly to low fat diet and eventually stop IVF - Symptomatic management with antiemetics and analgesics prn - Recommend OP EUS in 4-6 week's time - Encourage tobacco cessation - Type I heart block on admission EKG, Cardiology service consulted Supervising Physician Co-Signing Physician Notes Consult for abd pain and imaging suggestive of pancreatitis Pertinent pmxh: type 2 dm, etoh use, Pe - benign abdomen Labs no lft or lipase elevation, borderline elevated tg Agree with further mgmt with iv lr and outpatient eus in 4-6 weeks. History of Present Illness Reason for Consultation: Pancreatitis Requesting Physician: Dr. Bharat Lindsey Attending Physician: Dr. Croine Spaulding History of Present Illness Pt is a 70 y/o male w PMHx including DM II, HTN, Hyperlipidemia, tobacco use who presented to ED this morning w c/o nausea, dry heaves, poor appetite x 3 weeks. He admits some mild chills but no fevers. Did have loose stools few days ago but no BM now. He denies any sick contact, travels, raw/undercooked foods. 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 Upon eval, noted to have mildly elevated Amylase and Lipase. Normal kidney and liver functions. CT abd/pelvis w/o contrast showed signs of mild pancreatitis w/o fluid collection. Gallbladder is in place w/o stones or biliary ductal dilation noted. TG 153. Pt is a smoker. He admits to drink beer 1-2 cans sparingly. He denies illicit drugs. No new meds or dose changes. Not taking herbal supplements. No known family hx of autoimmune pancreatitis or liver disorders. Allergies Allergy/AdvReac Type Severity Reaction Status Date / Time TREES, POLLEN Allergy Intermediate ITCHY Uncoded 03/13/21 23:13 EYES, SNEEZE Home Medications Medication Instructions Recorded Confirmed Type aspirin 81 mg tablet,delayed 81 mg PO DAILY 03/13/21 03/13/21 History release citalopram 20 mg tablet 20 mg PO DAILY 03/13/21 03/13/21 History diclofenac sodium 1 % topical gel 1 g TOPICAL UD PRN 03/13/21 03/13/21 History fluticasone propionate 50 2 spray INTRANASAL DAILY 03/13/21 03/13/21 History mcg/actuation nasal spray,suspension insulin detemir U-100 100 unit/mL 36 unit SUBCUT BID 03/13/21 03/13/21 History (3 mL) subcutaneous pen (Levemir FlexTouch U-100 Insulin) lamotrigine 150 mg tablet 150 mg PO DAILY 03/13/21 03/13/21 History lisinopril 20 1 tab PO DAILY 03/13/21 03/13/21 History mg-hydrochlorothiazide 12.5 mg tablet omeprazole 20 mg capsule,delayed 20 mg PO DAILY 03/13/21 03/13/21 History release tadalafil 20 mg tablet (Cialis) 20 mg PO DAILY PRN 03/13/21 03/13/21 History tamsulosin 0.4 mg capsule 0.4 mg PO DAILY 03/13/21 03/13/21 History Patient History Social History Smoking Status: Current every day smoker Cigarettes Per Day: 1 pack; Second Hand Exposure: No; Do You Dip or Chew Tobacco: No; Tobacco Cessation Education Requested by Patient: No Hx Alcohol Use: Yes Alcohol type: beer Hx Substance Use: No Preferred Language: Cymro Communication Ability: Effective Pharmacovigilance Safety Expert Required: No Beliefs That Will Affect Care: None Current Living Situation: Alone Other Information That Helps Us Care for You: No Feels Safe at Home: Yes Safety Concerns: Feels Safe At This Time Assistive Devices: Glasses Review of Systems Review of Systems: All systems reviewed & are unremarkable except as noted in HPI & below Constitutional: as per Subjective / HPI Physical Exam Constitutional: WD/WN, vitals as above well groomed, cooperative and comfortable Eyes: PERRL, conjunctivae normal, anicteric sclerae ENMT: external ear and nose normal, oropharynx normal Respiratory: normal respiratory effort, lungs clear to auscultation Cardiovascular: RRR, no murmur, no edema Gastrointestinal (Abdomen): normal bowel sounds, soft, nontender, no hepatosplenomegaly Skin: no rashes, warm and dry no jaundice Psychiatric: A+Ox3, euthymic affect Lymphatic: no lymphedema Results & Data ([facility]) Vital Signs (Past 12 Hours) Vital Signs Temp Pulse Pulse Resp BP BP Pulse Ox 03/14/21 07:41 74 03/14/21 07:39 37.1 C 86 16 160/88 H 97 03/14/21 04:25 37.2 C 86 20 174/91 H 98 03/14/21 01:46 37.4 C 90 18 169/92 H 98 03/14/21 00:59 88 03/14/21 00:52 107 H 03/13/21 23:50 107 H 26 H 03/13/21 23:47 110 H 33 H 03/13/21 23:31 67 21 190/89 H 99 03/13/21 23:17 82 18 138/78 99 03/13/21 23:00 72 22 219/123 H 03/13/21 22:46 99 H 23 03/13/21 22:31 85 27 H 230/171 H 99 03/13/21 22:15 82 25 H 220/124 H 98 03/13/21 22:00 77 24 212/132 H 98 03/13/21 21:53 22 98 03/13/21 21:31 67 25 H 230/130 H 98
[2021-03-14] MEDS ORDERED: Nursing to Pharmacy Communication SCH (12:45)
[2021-03-14] MEDS ORDERED: PHARMACY GLYCEMIC MGMT CONSULT PRN (12:48)
--- NOTE | 2021-03-14 13:53 | Electrocardiogram Report ---
Test Reason : Blood Pressure : / mmHG Vent. Rate : 072 BPM Atrial Rate : 072 BPM P-R Int : 264 ms QRS Dur : 100 ms QT Int : 360 ms P-R-T Axes : 046 -54 074 degrees QTc Int : 394 ms Sinus rhythm with second degree type one AV block Left axis deviation Abnormal ECG When compared with ECG of 15-JUN-2013 21:13, Premature atrial complexes are no longer Present AK interval has increased QRS axis Shifted left Confirmed by Jeevan Mcrae ([id number]) on 03/14/2021 1:53:02 PM Referred By: REFERRED SELF Confirmed By:Raul Mcrae
--- NOTE | 2021-03-14 13:54 | Electrocardiogram Report ---
Test Reason : Blood Pressure : / mmHG Vent. Rate : 080 BPM Atrial Rate : 080 BPM P-R Int : 262 ms QRS Dur : 092 ms QT Int : 384 ms P-R-T Axes : 061 -10 074 degrees QTc Int : 442 ms Sinus rhythm with 1st degree A-V block Otherwise normal ECG When compared with ECG of 13-MAR-2021 20:25, (unconfirmed) QRS axis Shifted right Confirmed by Jeevan Mcrae ([id number]) on 03/14/2021 1:54:45 PM Referred By: REFERRED SELF Confirmed By:Raul Mcrae
--- NOTE | 2021-03-14 14:04 | Hospitalist Progress Note ---
Date of Service March 14, 2021 Assessment & Plan (1) Pancreatitis: Plan: Patient is a 70 yr male, who presents with ongoing nausea, dry heaves, and weight loss. Acute pancreatitis -CT ABD:There is mild infiltration and fluid identified around the distal pancreatic body and tail. No organized peripancreatic fluid collection is identified on this unenhanced examination. -Lipid panel within normal limits -Denies any frequent alcohol use -LFTs within normal limits Continue IV fluids Advance diet as tolerated Appreciate your input Needs outpatient endoscopic ultrasound in 4 to 6 weeks Recommend tobacco cessation Diarrhea Improving Denies any recent antibiotic use We will consider stool studies if persistent Mobitz type I heart block Likely vagal ECHO: No significant valvular pathology. EF 65 to 70%. Mild concentric LVH. Normal wall motion. Appreciate Cardiology input Hypertensive urgency: Likely situational Continue lisinopril, HCTZ Depression: Continue citalopram. Gastroesophageal reflux disease: Continue Pepcid DM II HbA1C: 10.1 Continue Insulin therapy Monitor BGs BPH On Flomax Tobacco abuse: Hand Screen Printer to quit DVT Px: Lovenox SQ Admission and Anticipated Discharge Date Admission Date: March 13, 2021 Subjective Patient is seen and examined at bedside States feeling much better today Nausea resolved Abdominal pain much improved Tolerating clear liquid diet Diarrhea improving as well Denies chest pain, dyspnea, dizziness Offers no other complaints Review of Systems Review of Systems: All systems reviewed & are unremarkable except as noted in Subjective Physical Exam 2 Physical Exam: Physical Exam: Vitals signs as noted above General Appearance:Moderately built and nourished, no apparent distress Head: normocephalic, Atraumatic Eyes: normal inspection, EOMI Neck: supple, Trachea midline Respiratory/Chest: Normal breath sounds, CTA, No accessory muscle use Cardiovascular: S1, S2, No murmur Abdomen/GI:Soft, Non tender, Bowel sounds present Extremities/Musculoskeletal:normal inspection, no edema Neurologic/Psych:AAOX3, grossly no focal neurological deficits Skin: normal color, warm Results & Data Results & Data ([facility]) Vital Signs (Past 12 Hours) Vital Signs Temp Pulse Pulse Resp BP Pulse Ox 03/14/21 11:39 37.2 C 88 19 175/77 H 97 03/14/21 07:41 74 03/14/21 07:39 37.1 C 86 16 160/88 H 97 03/14/21 04:25 37.2 C 86 20 174/91 H 98 Laboratory Results Short CBC 03/13/21 03/14/21 Range/Units 20:33 05:27 WBC 6.95 6.67 (4.8-10.8) K/uL Hgb 14.4 13.6 L (14.0-18.0) g/dL Hct 42.2 39.5 L (42-52) % Plt Count 269 228 (130-400) K/uL BMP 03/13/21 03/14/21 20:33 05:27 Sodium 131 L 137 Potassium 3.9 3.6 Chloride 98 106 Carbon Dioxide 26 28 BUN 13 13 Creatinine 1.08 0.83 Glucose 245 H 86 Calcium 8.4 L 8.6 Cardiac Enzymes 03/13/21 03/14/21 Range/Units 20:33 05:27 Troponin I < 0.015 0.019 (0-0.045) ng/ml Liver Function 03/13/21 Range/Units 20:33 Total Bilirubin 1.0 (0.2-1) mg/dl AST 18 (15-37) U/L ALT 26 (12-78) U/L Alkaline Phosphatase 99 (45-117) U/L Albumin 3.4 (3.4-5.0) gm/dl Urine 03/14/21 Range/Units 03:40 Urine Color Yellow Urine Appearance Clear (Clear) Urine pH 7.0 (4.5-7.5) Ur Specific [place] 1.022 (1.000-1.030) Urine Protein Trace H (Negative) Urine Glucose (UA) 3+ H (Negative)
--- NOTE | 2021-03-14 16:44 | Electrocardiogram Report ---
Test Reason : Blood Pressure : / mmHG Vent. Rate : 075 BPM Atrial Rate : 096 BPM P-R Int : 000 ms QRS Dur : 088 ms QT Int : 360 ms P-R-T Axes : 068 -07 073 degrees QTc Int : 402 ms Poor data quality, interpretation may be adversely affected Sinus rhythm with 2nd degree A-V block (Mobitz I) with 2:1 A-V conduction Abnormal ECG When compared with ECG of 13-MAR-2021 22:14, (unconfirmed) Sinus rhythm is now with 2nd degree A-V block (Mobitz I) Confirmed by Jeevan Mcrae ([id number]) on 03/14/2021 4:43:31 PM Referred By: REFERRED SELF Confirmed By:Raul Mcrae
--- NOTE | 2021-03-14 16:47 | Electrocardiogram Report ---
Test Reason : Blood Pressure : / mmHG Vent. Rate : 086 BPM Atrial Rate : 086 BPM P-R Int : 272 ms QRS Dur : 088 ms QT Int : 378 ms P-R-T Axes : 062 016 052 degrees QTc Int : 452 ms Sinus rhythm with 1st degree A-V block Otherwise normal ECG When compared with ECG of 14-MAR-2021 01:37, (unconfirmed) Sinus rhythm is no longer with 2nd degree A-V block (Mobitz I) Confirmed by Jeevan Mcrae ([id number]) on 03/14/2021 4:46:49 PM Referred By: REFERRED SELF Confirmed By:Raul Mcrae
[2021-03-15] MEDS: LACTATED RINGER'S 1,000 ML IV SCH ×2 (00:40→07:40)
[2021-03-15] MEDS ORDERED: INSULIN ASPART 100 UNITS/ML 3 ML PEN SC SCH (02:00)
[2021-03-15] MEDS: ENOXAPARIN INJ 40 MG/0.4 ML SYR SQ SCH (05:37)
[2021-03-15 07:16] LABS: Hematocrit (blood only) 36.4 % (42-52); Hemoglobin 12.1 g/dL (14.0-18.0); Mean Corpuscular Hemoglobin 31.8 pg (25-34); Mean Corpuscular Hgb Conc 33.2 g/dL (32-36); Mean Corpuscular Volume 95.5 fL (80-100); Mean Platelet Volume 10.8 fL (7.4-10.4); Platelet Count 202 K/uL (130-400); RDW Coefficient of Variation 11.9 % (11.5-14.5); RDW Standard Deviation 41.4 fL (36.4-46.3); Red Blood Count 3.81 M/uL (4.7-6.1); White Blood Count 6.01 K/uL (4.8-10.8)
[2021-03-15 07:46] LABS: BUN Creatinine Ratio 9.8 (10-20); Calcium 8.3 mg/dl (8.5-10.1); Creatinine Clr Calc Pharmacy 82.5 ml/min; Est GFR (African American) 106.2 ml/min; Est GFR (Non-African American) 91.6 ml/min; Magnesium 1.6 mg/dl (1.8-2.4); Potassium 3.3 mmol/L (3.5-5.1)
[2021-03-15] MEDS: FAMOTIDINE 20 MG in SYRINGE 3 ML IV SCH (08:04)
[2021-03-15] MEDS: TAMSULOSIN HCL 0.4 MG CAP PO SCH (08:04)
[2021-03-15] MEDS: LISINOPRIL/HCTZ 20/12.5MG 1 TAB TAB PO SCH (08:04)
[2021-03-15] MEDS: ASPIRIN 81 MG ECTAB PO SCH (08:04)
[2021-03-15] MEDS: PANTOprazole 40 MG TAB PO SCH (08:05)
[2021-03-15] MEDS: lamoTRIgine 100 MG TAB PO SCH (08:05)
[2021-03-15] MEDS: FLUTICASONE PROPIONATE NA SPR 16 GM BTL SCH (08:05)
[2021-03-15] MEDS: CITALOPRAM 20 MG TAB PO SCH (08:05)
[2021-03-15] MEDS ORDERED: POTASSIUM CHLORIDE CRTAB 20 MEQ TABCR PO ONE (08:15)
[2021-03-15] MEDS: INSULIN ASPART 100 UNITS/ML 3 ML PEN SC SCH ×2 (08:55→12:50)
[2021-03-15] MEDS ORDERED: MAGNESIUM SULFATE / D5W 1 GM/100 ML BAG IV ONE (09:00)
[2021-03-15] MEDS ORDERED: MAGNESIUM CHLORIDE 64MG DELAYED REL TAB PO SCH (09:00)
--- NOTE | 2021-03-15 09:10 | Pharmacy Report ---
Pharmacy Glycemic Short Note 2 - Date of Service March 15, 2021 - Glycemic Short BSG Results (Last 24 hours): 03/14/21 03/14/21 03/14/21 11:43 16:39 20:29 Glucose POC Glucose 270 H 76 169 H 03/15/21 03/15/21 03/15/21 01:54 06:32 07:55 Glucose 67 L POC Glucose 88 72 OUTPATIENT ANTIDIABETIC REGIMEN: * Levemir 36 units SQ BID * A1c 10.1% 03/04/21 ASSESSMENT: * 70 year old male admitted with acute pancreatitis, uncontrolled type 2 diabetic on basal insulin only as outpatient * Patient started on basal bolus insulin yesterday, received 56 units of insulin, 28 units basal, 28 units bolus * Fasting BSG 67 mg/dl - placed basal on hold this morning, resumed at lunch with 10 units, and decrease HS dose * Also loosen CF for hypoglycemia PLAN FOR INPATIENT GLYCEMIC CONTROL: * Basal insulin * Lantus 10 units SQ today at lunch then QAM * 10-15 units HS based on blood sugar * Bolus insulin * NovoLog per scale ACHS or Q6hrs while NPO * Goal Range: Low 110 mg/dL - High 140 mg/dL * Correction Factor: 25 mg/dL/unit * Nutritional / Prandial insulin per carb ratio of 1 unit per 8 grams CHO consumed
[2021-03-15] MEDS ORDERED: INSULIN DETEMIR FLEXPEN/FLEX TOUCH 100 UNITS/ML 3ML SC ONE (12:15)
--- NOTE | 2021-03-15 13:10 | Hospitalist Progress Note ---
Date of Service March 15, 2021 Assessment & Plan (1) Pancreatitis: Plan: Patient is a 70 yr male, who presents with ongoing nausea, dry heaves, and weight loss. Acute pancreatitis -CT ABD:There is mild infiltration and fluid identified around the distal pancreatic body and tail. No organized peripancreatic fluid collection is identified on this unenhanced examination. -Lipid panel within normal limits -Denies any frequent alcohol use -LFTs within normal limits Received IV fluids Advance to regular diet Appreciate GI input Needs outpatient endoscopic ultrasound in 4 to 6 weeks Recommend tobacco and alcohol cessation Diarrhea Resolved Denies any recent antibiotic use We will consider stool studies if persistent Mobitz type I heart block Likely vagal ECHO: No significant valvular pathology. EF 65 to 70%. Mild concentric LVH. Normal wall motion. Appreciate Cardiology input Hypertensive urgency: Likely situational Continue lisinopril, HCTZ Depression: Continue citalopram. 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 quit DVT Px: Lovenox SQ Admission and Anticipated Discharge Date Admission Date: March 13, 2021 Subjective Patient is seen and examined at bedside Doing well today No new complaints Abdominal pain resolved Tolerating diet Denies chest pain, dyspnea, dizziness Review of Systems Review of Systems: All systems reviewed & are unremarkable except as noted in Subjective Physical Exam Physical Exam: Physical Exam: Vitals signs as noted above General Appearance:Moderately built and nourished, no apparent distress Head: normocephalic, Atraumatic Eyes: normal inspection, EOMI Neck: supple, Trachea midline Respiratory/Chest: Normal breath sounds, CTA, No accessory muscle use Cardiovascular: S1, S2, No murmur Abdomen/GI:Soft, Non tender, Bowel sounds present Extremities/Musculoskeletal:normal inspection, no edema Neurologic/Psych:AAOX3, grossly no focal neurological deficits Skin: normal color, warm Results & Data Results & Data ([facility]) Vital Signs (Past 12 Hours) Vital Signs Temp Pulse Pulse Resp BP BP Pulse Ox 03/15/21 11:10 36.9 C 74 16 180/99 H 98 03/15/21 07:56 79 03/15/21 04:06 36.7 C 75 16 183/95 H 96 Laboratory Results Short CBC 03/15/21 Range/Units 06:32 WBC 6.01 (4.8-10.8) K/uL Hgb 12.1 L (14.0-18.0) g/dL Hct 36.4 L (42-52) % Plt Count 202 (130-400) K/uL [facility] 03/15/21 06:32 Sodium 137 Potassium 3.3 L Chloride 107 Carbon Dioxide 26 BUN 8 D Creatinine 0.79 Glucose 67 L Calcium 8.3 L
[2021-03-15] MEDS ORDERED: amLODIPine BESYLATE 5 MG TAB PO SCH (13:15)
--- NOTE | 2021-03-15 13:21 | Discharge Summary ---
Date of Service March 15, 2021 Admission HPI Per Admitting Provider CHIEF COMPLAINT: Nausea, poor appetite. HISTORY OF PRESENT ILLNESS: This is a 70-year-old male with past medical history significant for type 2 diabetes, hyperlipidemia, hypertension, GERD, BPH, moderate depression, tobacco disorder, mild cognitive impairment, lives alone, presents with ongoing nausea, dry heaves, poor appetite for the last 3 weeks. He says he has lost some weight, that is the reason he came to the ER and found to have mild pancreatitis and also having elevated blood pressure. Denies any abdominal pain. Says he is having loose diarrhea, but he is not eating much, so nothing is coming out much. Normal bladder movements. Denies any burning micturitions, no swelling in the legs. No chest pain. No shortness of breath. Has smoker's cough. No headache, no blurred visions, no earache, no runny nose, no sore throat. Currently, resting comfortably and hemodynamically stable. Admission Exam Per Admitting Provider PHYSICAL EXAMINATION: GENERAL: The patient is of moderate build, not in acute distress. VITAL SIGNS: Temperature 36.7, pulse 72, respiratory rate 22, blood pressure 219/123, oxygen 99% on room air. HEENT: Pupils equal, round and reactive to light. Oral mucosa moist. NECK: No JVD, no neck masses. HEART: S1 and S2 heard. Regular rate and rhythm. No murmur, no gallop. RESPIRATORY SYSTEM: Normal AP diameter. No accessory muscle use. No wheezing, no crackles. ABDOMEN: Soft, bowel sounds present, nontender, no distention. CENTRAL NERVOUS SYSTEM: Cranial nerves II-XII grossly intact, nonfocal. EXTREMITIES: No edema, no erythema. Principal Diagnosis Acute pancreatitis Hyponatremia Hypertension Mobitz type I heart block Discharge Data Allergies Allergy/AdvReac Type Severity Reaction Status Date / Time TREES, POLLEN Allergy Intermediate ITCHY Uncoded 03/13/21 23:13 EYES, SNEEZE Consultations 03/13/21 22:31 ED Decision to Admit Stat 03/14/21 08:00 Consult Cardiology Routine Consult Gastroenterology Routine Ordered Studies 03/13/21 20:48 CT abd pelvis wo con Stat Diabetes Follow up Diabetes Follow-up Needed for HgbA1c >9% Hospital Course (1) Pancreatitis: Patient is a 70 yr male, who presents with ongoing nausea, dry heaves, and weight loss. Acute pancreatitis -CT ABD:There is mild infiltration and fluid identified around the distal pancreatic body and tail. No organized peripancreatic fluid collection is identified on this unenhanced examination. -Lipid panel within normal limits -Denies any frequent alcohol use -LFTs within normal limits Received IV fluids Advance to regular diet Appreciate GI input Needs outpatient endoscopic ultrasound in 4 to 6 weeks Recommend tobacco and alcohol cessation Diarrhea Resolved Denies any recent antibiotic use We will consider stool studies if persistent Mobitz type I heart block Likely vagal ECHO: No significant valvular pathology. EF 65 to 70%. Mild concentric LVH. Normal wall motion. Appreciate Cardiology input Hyponatremia Likely secondary to dehydration Sodium levels normalized with IV fluids Monitor Hypertensive urgency: Likely situational Continue lisinopril, HCTZ Depression: Continue citalopram. 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 DVT Px: Lovenox SQ Total Time Total Time Spent Total Time Spent (In Minutes): 43 minutes Discharge Plan Discharge Items Patient Disposition: Home - Self-Care Reason For Visit: NAUSEA, POOR APPETITE Discharge Diagnosis: Acute pancreatitis Hyponatremia Hypertension Mobitz type I heart block Activity: Per Instructions section Exercise/Sports: Gradually increase as tolerated Non-emergency contact: Primary Care Provider and Professor Of Graphic Design Call non-emergency contact if: you have any medication questions, your symptoms worsen, your pain is not controlled, your pain is concerning for you and you have a fever Follow-up/Referrals: Miki Wynn DO [Primary Care Provider] - (Date & Time 03/19/2021 3:00 PM Provider Miki Wynn DO Department General Internal Medicine [facility] ) Diet: Carb Consistent or DM2 and Heart Healthy Addtl Attending Provider Instructions: Follow-up with your primary care physician on 03/19/2021 3:00 PM Follow up with your Professor Of Graphic Design in 4-6 weeks for endoscopic ultrasound as outpatient as recommended by your stave grader Quit Drinking and Alcohol and stop smoking as advised Check your Blood pressure regularly as advised and follow-up with your primary care physician for further adjustment of your high blood pressure medications. Seek immediate medical attention if your symptoms reoccur or worsen Please take all medications as instructed on discharge list below. Please call if you have any questions or problems. You can reach a [facility] hospitalist on duty at [facility] 24 hours a day by calling [phone] Pending Studies at Discharge: No Stand-Alone Forms: My [facility], Work/School Release, Smoking Cessation Medications and DC Order Prescriptions: New amlodipine [Norvasc] 5 mg Tablet 2.5 mg PO QAM Qty: 30 RF: 1 magnesium chloride [Mag 64] 64 mg Tablet,Delayed Release (Dr/Ec) 64 mg PO BID Qty: 30 RF: 0 Continued lamotrigine 150 mg tablet 150 mg PO DAILY RF: 0 lisinopril-hydrochlorothiazide 20-12.5 mg tablet 1 tab PO DAILY RF: 0 aspirin 81 mg Tablet,Delayed Release (Dr/Ec) 81 mg PO DAILY RF: 0 citalopram 20 mg tablet 20 mg PO DAILY RF: 0 tamsulosin 0.4 mg capsule 0.4 mg PO DAILY RF: 0 omeprazole 20 mg capsule,delayed release(DR/EC) 20 mg PO DAILY RF: 0 fluticasone propionate 50 mcg/actuation [place],Suspension 2 spray INTRANASAL DAILY RF: 0 tadalafil [Cialis] 20 mg Tablet 20 mg PO DAILY PRN (Reason: BEFORE SEX) RF: 0 Levemir FlexTouch U-100 Insuln 100 unit/mL (3 mL) insulin pen 36 unit SUBCUT BID RF: 0 diclofenac sodium 1 % Gel 1 g TOPICAL UD PRN (Reason: Pain) RF: 0 Discharge Orders: Discharge Order (Routine); Ordered 03/15/21 Ordered By: Bharat Lindsey Admission Data Admit Date/Time: 03/13/21 23:30 Attending Provider: Bharat Lindsey Admit Provider: Adin Reza Primary Care Provider: Miki Wynn Other Providers: Adin Reza ; Stella Rangel ; Mary Kate Tenorio ; Lucía Mojica ; Cee Almazan ; Geoffrey Silva ; Leia Sharma ; Kyler Olivarez ; Simón Oshea ; Shannan Stewart ; Maria De Jesus Mar ; Collette Edmond ; Corine Spaulding ; Parisa Vasquez ; Frederick Tierney ; Geoffrey Costello ; Royce Cordero ; Juan Carlos Sexton ; Jagjit Ramirez. ; Edwar Angelo ; Nani Prasad ; Melita Marques ; Ele Solitario. ; Michael Browne Other Interventions: Discharge Summary Assessment (RN) Last Done: 03/15/21 13:47
== END 2021-03-15 14:42 | disposition home or self-care (01) | DRG 439 ==
LOC: ED 19:54 → 2N 23:30